=== PATIENT | male | born 2000 | race African-American/Black ===

== ENCOUNTER → 2020-09-29 | Outpatient (CLI) | payer OTHER | LOC: COL.RAD 08:36 | DX: M40.50 Lordosis, unspecified, site unspecified (principal); F07.81 Postconcussional syndrome | CPT/HCPCS: A9585 ==

== ENCOUNTER 2021-01-06 11:00 | Emergency (ER) | payer OTHER ==
[~2021-01-06] VITALS: Ht 172.7 cm; Wt 84.1 kg
[2021-01-06 11:03] VITALS: TEMP 98
[2021-01-06] MEDS ORDERED: KEPPRA1000 MG PO (11:21)
[2021-01-06 11:26] LABS: BASO % 0.6 % (0.0-2.0); EOS % 0.8 % (0-4.0); GRAN # 2.7 (1.4-6.5); GRAN % 51.1 % (42.2-75.2); HEMATOCRIT 41.5 % (36.0-47.0); HEMOGLOBIN 14.5 g/dl (12.5-16.1); LYMPH # 2.1 (1.2-3.4); LYMPH % 39.8 % (20.0-51.0); MEAN CELL VOLUME 80 fl (80.0-95.0); MEAN CORPUSCULAR HEMOGLOBIN 28 pg (26.0-32.0); MEAN CORPUSCULAR HGB CONC 35 g/dl (33.0-37.0); MEAN PLATELET VOLUME 10.9 fl (7.4-10.4); MONO # 0.4 (0.1-0.6); MONO % 7.3 % (1.7-9.3); PLATELET COUNT 243 K/mm3 (130-400); RED BLOOD COUNT 5.17 M/mm3 (4.20-5.60); REDCELL DISTRIBUTION WIDTH-CV 13.9 % (11.5-14.5)
[2021-01-06 11:40] LABS: ALANINE AMINOTRANSFERASE 34 U/L (4-49); ALBUMIN 4.8 gm/dL (3.5-5.0); ALKALINE PHOSPHATASE 58 U/L (50-136); ANION GAP 12 mmol/L (7-16); AST,SGOT 42 U/L (15-37); BILIRUBIN,TOTAL 0.3 mg/dL (0.0-1.0); BLOOD UREA NITROGEN 16 mg/dL (9-20); CALCIUM 9.7 mg/dL (8.4-10.2); CARBON DIOXIDE 25 mmol/L (22-30); CHLORIDE 104 mmol/L (98-107); CHOLESTEROL 237 mg/dL (120-200); CHOLESTEROL RISK RATIO 3.7; CREATININE, serum 1.02 (0.66-1.25); GLUCOSE 91 mg/dL (74-106); HDL CHOLESTEROL 63 mg/dL; LDL CHOLESTEROL 153 mg/dL; POTASSIUM 4.1 mmol/L (3.4-5.0); SODIUM 141 mmol/L (137-145); TOTAL PROTEIN 8.6 gm/dL (6.4-8.2); TRIGLYCERIDE 105 mg/dL
[2021-01-06 11:42] LABS: C-REACTIVE PROTEIN < 0.5 mg/dL (0.0-0.9)
[2021-01-06 11:53] LABS: PROLACTIN 9.6 ng/mL (3.7-17.9)
[2021-01-06 12:20] LABS: COLLECTION METHOD CLEAN CATCH
[2021-01-06 12:26] LABS: MUCOUS Present /lpf; PH 6 (5-8); SQUAMOUS EPITHELIAL None Seen /hpf; URINE APPEARANCE Clear; URINE BACTERIA None Seen /hpf; URINE BILIRUBIN Negative (NEGATIVE); URINE BLOOD Negative (NEGATIVE); URINE COLOR Yellow; URINE GLUCOSE Negative (NEGATIVE); URINE KETONE Negative (NEGATIVE); URINE LEUKOCYTE ESTERASE Negative (NEGATIVE); URINE NITRATE Negative (NEGATIVE); URINE PROTEIN(semi-quant) 1+ (NEGATIVE); URINE RBC 0-2 /hpf; URINE UROBILINOGEN Negative (NEGATIVE)
[2021-01-06 13:24] VITALS: BP 118/78; PULSE 93
== END 2021-01-06 13:24 | disposition home or self-care (01) ==
LOC: COL.ER 11:00
PROVIDERS: Family Medicine
DX: G40.909 Epilepsy, unspecified, not intractable, without status epilepticus (principal); Z79.899 Other long term (current) drug therapy
CPT/HCPCS: J1885; J1953; J7120

== ENCOUNTER → 2021-07-06 | Outpatient (CLI) | payer OTHER ==
[~2021-07-06] MED LIST: KEPPRA1000 MG PO
== END ==
LOC: COL.CARD 09:32
DX: F07.81 Postconcussional syndrome (principal); R55 Syncope and collapse